=== PATIENT | female | born 1990 | race African-American/Black ===

== ENCOUNTER 2020-04-19 11:51 | Emergency (ER) | payer OTHER, SELFPAY ==
--- NOTE | ~2020-04-19 | XR_ITS ---
LUMBAR SPINE INDICATION: Lifting injury TECHNIQUE: 3 views lumbar spine COMPARISON: None FINDINGS: No fracture, subluxation or dislocation. No evidence for spondylolysis or spondylolisthesi s. Vertebral bodies and disk spaces are preserved. IMPRESSION: 1: No acute abnormality of the lumbar spine identified. Reviewed, dictated and finalized at location A. [employer]
--- NOTE | ~2020-04-19 | XR_ITS ---
XR thoracic spine 2V 04/19/2020 13:00 Indication: Back pain Procedure: 3 views thoracic spine Comparison: No prior studies for comparison. Findings: There is levoscoliosis of the thoracic spine. No fracture, subluxation or dislocation. Pedi cles intact. No paraspinal soft tissue abnormality. Surrounding osseous structures within normal limi ts. Impression: 1: No acute abnormality of the thoracic spine. Reviewed, dictated and finalized at location A. [employer] Impression: 1: No acute abnormality of the thoracic spine.
--- NOTE | ~2020-04-19 | XR_ITS ---
XR pelvis 1-2V 04/19/2020 13:00 INDICATION: Pelvic pain. Lifting injury. PROCEDURE: AP pelvis COMPARISON: No prior studies for comparison. FINDINGS: Fracture, dislocation or subluxation is not identified. The soft tissues appear within norm al limits. No foreign bodies are identified. IMPRESSION: 1: NO ACUTE BONE OR JOINT ABNORMALITY IDENTIFIED. Reviewed, dictated and finalized at location A. [employer]
[2020-04-19 12:10] VITALS: BP 118/80; PULSE 89; RESP 18; TEMP 37.2; O2SAT 99
[2020-04-19 12:33] VITALS: BP 181/87; PULSE 89; RESP 14; TEMP 36.1; O2SAT 100
--- NOTE | 2020-04-19 12:34 | ED.GENADULT ---
HPI - General Adult General Chief complaint: Back Pain/Injury Stated complaint: Extremity Injury, Upper Source: patient Mode of arrival: ambulatory Limitations: no limitations History of Present Illness HPI narrative: Patient presents for evaluation of back pain. 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 Pain has been constant since that time but she has worsening pain with movement. States her pain is described as tightness that she experiences sharp pain with movement. She rates her pain a 6 out of 10 in severity. No saddle anesthesia. No radicular component to the pain. She applied ice to the affected area and tried icy hot but has not had significant improvement in pain thereafter. Related Data Home Medications Medication Instructions Recorded Confirmed albuterol sulfate 2 puff INHALATION QID 04/19/20 04/19/20 Allergies Allergy/AdvReac Type Severity Reaction Status Date / Time No Known Allergies Allergy Verified 04/19/20 12:29 Review of Systems Review of Systems: Narrative: CONSTITUTIONAL: Denies fever, chills, or sweats. EYES: Denies visual changes, redness, or discharge. ENT: Denies rhinorrhea, congestion, sore throat, or otalgia. CARDIOVASCULAR: Denies chest pain, palpitations, or edema. RESPIRATORY: Denies cough or dyspnea. GASTROINTESTINAL: Denies abdominal pain, nausea, vomiting, or diarrhea. GENITOURINARY: Denies dysuria or hematuria. SKIN: Denies rash or itching. MUSCULOSKELETAL: Denies joint pain, or myalgia. Reports back pain NEUROLOGIC: Denies headache, numbness, dizziness, or weakness. PSYCHIATRIC: Denies anxiety or depression. REPLACED BY [facility] Past Medical History Medical History (Updated 04/19/20 @ 13:22 by DANIA Hauser, [place]) Anxiety Obesity PTSD (post-traumatic stress disorder) Surgical History Surgical History (Updated 04/19/20 @ 12:42 by DANIA Hauser, [place]) No pertinent past surgical history Family History Family History Father Diabetes mellitus Social History Social History (Updated 04/19/20 @ 12:43 by DANIA Hauser, [place]) Smoking status: Current some day smoker Additional smoking assessment comments: Smokes 1 pack/month Alcohol intake: never Substance use type: marijuana Living arrangements: other Additional living arrangements comments: Lives with her significant other Gender identity (if verbalized by the patient): Female Sexual Orientation (if Verbalized by the Patient): Straight or Heterosexual Spiritual care concerns: No Exam Narrative: Exam Narrative: GENERAL: Well-appearing, well-nourished, and in no acute distress. HEAD: Normocephalic, atraumatic. EYES: PERRLA and EOMI. ENT: Nares clear, no rhinorrhea or epistaxis. Mucous membranes moist. Oropharynx without tonsillar hypertrophy exudate or other lesions. Bilateral TMs pearly guzman nonbulging NECK: Supple. No adenopathy or masses. No carotid bruits or JVD CHEST: Clear to auscultation. No respiratory distress. No wheezes rales or rhonchi tenderness in midline and paraspinous muscles bilaterally of thoracic and lumbar spine and over right posterior pelvis. HEART: Regular rate and rhythm. No murmur heard. Normal peripheral pulses. ABDOMEN: Soft, nontender, nondistended, normal active bowel sounds. EXTREMITIES: Normal range of motion. No edema. SKIN: Warm, dry, no rash. NEURO: No focal deficits. Alert and oriented x3. PSYCH: Normal mood and affect. Course Course Emergency Course: 29-year-old female who presents for evaluation of back pain after injuring herself lifting a pallet at work. On physical exam she does have reproducible pain in the thoracic, lumbar spinal region as well as over the posterior pelvis. She is underlying anxiety and PTSD and these seem to be somewhat contributory to her tend
== END 2020-04-19 13:39 | disposition home or self-care (01) ==
PROVIDERS: Emergency Provider Nurse Practitioner; Referring Provider Internal Medicine
DX: S29.012A Strain of muscle and tendon of back wall of thorax, initial encounter (principal); S39.012A Strain of muscle, fascia and tendon of lower back, initial encounter; X50.0XXA Overexertion from strenuous movement or load, initial encounter; Y99.0 Civilian activity done for income or pay; F17.200 Nicotine dependence, unspecified, uncomplicated
CPT/HCPCS: 72070; 72100; 72170; 81025; 99214; G0463

== ENCOUNTER 2022-03-29 08:54 | Emergency (ER) | payer OTHER, SELFPAY ==
[2022-03-29 09:00] VITALS: BP 152/97; PULSE 85; RESP 20; TEMP 36.7; O2SAT 100
--- NOTE | 2022-03-29 09:42 | ED.EYEPROB ---
HPI - Eye Problem General Chief complaint: Eye Problems Stated complaint: right eye Time Seen by Provider: 03/29/22 09:42 Source: patient, RN notes reviewed and old records reviewed Mode of arrival: ambulatory Limitations: no limitations History of Present Illness HPI Narrative: 31 year old female who presents to [facility] with complaints that cat scratched her right eye 2 days ago. Patient verbalizes discomfort to her right eye with some crusting to her right eyelashes noted this morning.Patient does wear glasses but did not bring them visual acuity 20/70 right eye, left eye 20/30 without corrective lens.Patient reports that she has applied cool and warm compresses to her right eye, denies any acute visual changes. MD chief complaint: eye pain Onset (ago): day(s) (2) Onset description: sudden Severity scale (1-10): 8 Treatments Prior to Arrival: other (compresses to right eye) Related Data Home Medications Medication Instructions Recorded Confirmed albuterol sulfate 90 mcg/actuation 2 puff inhalation QID 04/19/20 04/19/20 aerosol inhaler budesonide-formoterol HFA 160 inhalation 03/29/22 mcg-4.5 mcg/actuation aerosol inhaler (Symbicort) pantoprazole 40 mg tablet,delayed mg PO 03/29/22 release Allergies Allergy/AdvReac Type Severity Reaction Status Date / Time No Known Allergies Allergy Verified 04/19/20 12:29 Review of Systems Review of Systems: CONSTITUTIONAL: Denies fever, chills, or sweats. EYES: Denies any acute visual changes. Reports redness,, irritation, discharge and discomfort to her right eye. ENT: Denies rhinorrhea, congestion, sore throat, or otalgia CARDIOVASCULAR: Denies chest pain, palpitations, or edema. RESPIRATORY: Denies cough or dyspnea. SKIN: Denies rash or itching. NEUROLOGIC: Denies headache All systems reviewed & are unremarkable except as noted in HPI and below PMFSH Past Medical History Medical History (Updated 04/05/22 @ 13:59 by Elise Ospina NP) Anxiety Asthma GERD (gastroesophageal reflux disease) Hypertension Obesity PTSD (post-traumatic stress disorder) Surgical History Surgical History No pertinent past surgical history Family History Family History Father Diabetes mellitus Social History Social History Smoking status: Current some day smoker Additional smoking assessment comments: Smokes 1 pack/month Alcohol intake: never Substance use type: marijuana Additional living arrangements comments: Lives with her significant other Gender identity (if verbalized by the patient): Female Sexual Orientation (if Verbalized by the Patient): Straight or Heterosexual Spiritual care concerns: No Comments At time of signature, agree with nursing past medical, surgical, social and family history. There is no relevant family history pertinent to the presenting complaint Exam Narrative: GENERAL: Well-appearing, well-nourished, and in no acute distress. HEAD: Normocephalic, atraumatic. EYES: PERRLA and EOMI. Upper and lower eyelids unremarkable. No periorbital cellulitis noted. Sclera and conjunctivae injected right eye with some crusting noted to right eye this morning ENT: Nares clear, no rhinorrhea or epistaxis. Mucous membranes moist.TM's normal with good light reflex, throat pink with no lesions or swelling NECK: Supple.no lymphadenopathy CHEST: Clear to auscultation. No respiratory distress.SAO2 100% on room air HEART: Regular rate and rhythm. No murmur heard. Normal peripheral pulses. SKIN: Warm, dry, no rash. NEURO: No focal deficits. Alert and oriented x3. Course Course Emergency Course: Patient is aware of diagnosis, understands and agrees to treatment plan. Anticipatory guidance given. Patient agrees to follow-up as directed and is aware of reasons to seek care at
== END 2022-03-29 10:19 | disposition home or self-care (01) ==
PROVIDERS: Emergency Provider Registered Nurse
DX: S00.211A Abrasion of right eyelid and periocular area, initial encounter (principal); F17.210 Nicotine dependence, cigarettes, uncomplicated; X58.XXXA Exposure to other specified factors, initial encounter
CPT/HCPCS: 99213; A9270; G0463

== ENCOUNTER 2022-06-23 15:53 | Emergency (ER) | payer OTHER, SELFPAY ==
--- NOTE | 2022-06-23 15:55 | ED.URI ---
HPI - URI/Sore Throat General Chief Complaint: Upper Respiratory Infection Stated Complaint: head congestion/rash on ankle Time Seen by Provider: 06/23/22 15:55 Source: patient and RN notes reviewed History of Present Illness HPI Narrative: Patient is a 31-year-old female who presents to urgent care with complaints of head congestion, watery eyes, cough and sore throat. Patient states all of her roommates have had upper respiratory viruses. Patient states it started on Tuesday and she has been taking [place]. +. Patient also reports a chronic rash to bilateral ankles is causing a lot of itching. Denies of any shortness of breath or wheezing. Denies any fevers. No other acute complaints. No acute distress noted. Patient aware of the plan of care. Some parts of this dictation were generated by voice recognition software and may contain typographical and/or grammatical inaccuracies. Related Data Home Medications Medication Instructions Recorded Confirmed albuterol sulfate 90 mcg/actuation 2 puff inhalation QID 04/19/20 06/23/22 aerosol inhaler budesonide-formoterol HFA 160 1 puff inhalation DIRECTED 03/29/22 06/23/22 mcg-4.5 mcg/actuation aerosol inhaler (Symbicort) pantoprazole 40 mg tablet,delayed 40 mg PO DIRECTED 03/29/22 release spironolactone 06/23/22 Allergies Allergy/AdvReac Type Severity Reaction Status Date / Time No Known Allergies Allergy Verified 06/23/22 16:16 Review of Systems Review of Systems: CONSTITUTIONAL: Denies fever, chills, or sweats. EYES: Reports of bilateral watery eyes ENT: Reports of nasal congestion, sore throat, postnasal drainage CARDIOVASCULAR: Denies chest pain, palpitations, or edema. RESPIRATORY: Reports of cough without dyspnea GASTROINTESTINAL: Denies abdominal pain, nausea, vomiting, or diarrhea. GENITOURINARY: Denies dysuria or hematuria. SKIN: Reports of itchy dry rash bilateral ankles MUSCULOSKELETAL: Denies back pain, joint pain, or myalgia. NEUROLOGIC: Denies headache, numbness, or weakness. All other systems reviewed are negative, except as documented in HPI. [facility] Past Medical History Medical History (Updated 06/23/22 @ 16:44 by DANIA Cruz) Anxiety Asthma GERD (gastroesophageal reflux disease) Hypertension Obesity PTSD (post-traumatic stress disorder) Surgical History Surgical History No pertinent past surgical history Family History Family History Father Diabetes mellitus Social History Social History Smoking status: Current some day smoker Additional smoking assessment comments: Smokes 1 pack/month Alcohol intake: never Substance use type: marijuana Living arrangements: other Additional living arrangements comments: Lives with her significant other Gender identity (if verbalized by the patient): Female Sexual Orientation (if Verbalized by the Patient): Straight or Heterosexual Spiritual care concerns: No Comments At the time of my signature, I reviewed and agree with the nursing past medical, surgical, social, and family history. There is no relevant family history pertinent to the patient complaint. Exam Narrative: GENERAL: This is a well-nourished, well-developed patient, in no apparent distress. HEAD: normocephalic, atraumatic. EYES: PERRL. Sclera clear/white. Vision is grossly intact. Mild injected conjunctiva with clear drainage bilaterally EARS: External ears normal, auditory canals clear and without drainage, TMs normal without perforation. Hearing grossly intact. NOSE: External nose normal with no obvious nasal discharge, bilateral erythema nares with clear yellow rhinorrhea THROAT: Mucous membranes moist, mild erythema to posterior oropharynx with moderate postnasal drainage NECK: Neck supple, non-tender without lymph
[2022-06-23 16:06] VITALS: BP 129/77; PULSE 80; RESP 16; TEMP 36.7; O2SAT 100
== END 2022-06-23 16:47 | disposition home or self-care (01) ==
PROVIDERS: Emergency Provider Nurse Practitioner Family
DX: J32.9 Chronic sinusitis, unspecified (principal); L40.9 Psoriasis, unspecified; H10.13 Acute atopic conjunctivitis, bilateral; F17.200 Nicotine dependence, unspecified, uncomplicated; F12.90 Cannabis use, unspecified, uncomplicated; J45.909 Unspecified asthma, uncomplicated; K21.9 Gastro-esophageal reflux disease without esophagitis; I10 Essential (primary) hypertension; E66.9 Obesity, unspecified; Z68.43 Body mass index [BMI] 50.0-59.9, adult
CPT/HCPCS: 99213; G0463